=== PATIENT | female | born 1965 ===

== ENCOUNTER 2017-11-03 22:31 | Emergency (ER) | payer OTHER ==
--- NOTE | 2017-11-03 23:36 | ED PDOC ---
HPI: Abdomen Time Seen by Provider: 11/03/17 22:45 Chief Complaint (Nursing): Abdominal Pain Chief Complaint (Provider): abdominal pain History Per: Patient History/Exam Limitations: no limitations Onset/Duration Of Symptoms: Days (x8 months), Intermittent Episodes, Worse Since (x2 days) Current Symptoms Are (Timing): Still Present Associated Symptoms: Vomiting. denies: Fever, Chills, Diarrhea, Loss Of Appetite, Constipation Additional Complaint(s): Yojana Nicholas is a 52 year old female, with no significant past medical history, who presents to the emergency department for evaluation of abdominal pain ongoing for x8 months. Patient just moved here from [place], and states on [place] she did visit the ER about this. She doesn't remember what kind of test she had done but ultimately she was diagnosed with gastritis. She was on medications for this but states she ran out. The pain has been intermittent for 8 months but over the last x2 days it returned and is associated with intermittent non bilious, non bloody vomiting. Otherwise, she reports a normal appetite. She denies any fever, chills, diarrhea, constipation, black or bloody stools. No further medical complaints. PMD: Past Medical History Reviewed: Historical Data, Nursing Documentation, Vital Signs Vital Signs: Last Vital Signs Temp 98.0 F 11/04/17 02:19 Pulse 56 L 11/04/17 02:19 Resp 18 11/04/17 02:19 BP 138/74 11/04/17 02:19 Pulse Ox 100 11/04/17 06:26 - Medical History PMH: No Chronic Diseases - Surgical History Surgical History: Cholecystectomy - Family History Family History: States: No Known Family Hx - Social History Current smoker - smoking cessation education provided: No - Home Medications Home Medications: Ambulatory Orders Medication Instructions Recorded Famotidine [Pepcid] 20 mg PO BID #30 tab 12/16/16 Sucralfate [Carafate] 1 gm PO BID #20 tab 12/16/16 Famotidine [Pepcid] 20 mg PO BID PRN #10 tab 11/04/17 Nitrofurantoin Macrocrystals 100 mg PO BID #14 cap 11/04/17 [Macrobid] - Allergies Allergies/Adverse Reactions: Allergies Allergy/AdvReac Type Severity Reaction Status Date / Time No Known Allergies Allergy Verified 11/03/17 22:38 Review of Systems ROS Statement: Except As Marked, All Systems Reviewed And Found Negative Constitutional: Negative for: Fever, Chills Gastrointestinal: Positive for: Vomiting (non bilious, non bloody), Abdominal Pain. Negative for: Diarrhea, Constipation, Melena, Hematochezia Physical Exam - Reviewed Nursing Documentation Reviewed: Yes Vital Signs Reviewed: Yes - Physical Exam Appears: Positive for: Non-toxic, No Acute Distress Head Exam: Positive for: ATRAUMATIC, NORMOCEPHALIC Skin: Positive for: Normal Color, Warm, Dry Eye Exam: Positive for: Normal appearance, EOMI, PERRL Neck: Positive for: Painless ROM Respiratory: Negative for: Respiratory Distress Gastrointestinal/Abdominal: Positive for: Soft, Tenderness (mild tenderness to palpation to left upper and lower quadrants. ). Negative for: Mass, Distended, Guarding, Rebound, Other (Negative Sanchez's sign and McBurney's point. ) Extremity: Positive for: Normal ROM (upper and lower extremities). Negative for : Deformity, Swelling Neurologic/Psych: Positive for: Alert, Oriented - Laboratory Results Result Diagrams: 11/03/17 23:34 11/03/17 23:34 - ECG O2 Sat by Pulse Oximetry: 100 (RA) Pulse Ox Interpretation: Normal Medical Decision Making Medical Decision Making: Time: 22:45 Initial Impression: acute on chronic abdominal pain. Differential diagnosis includes but not limited to gastritis, colitis, diverticulitis and enteritis. Initial Plan: --CMP --Lipase --CBC w/ differential --Obstructive series [RAD] --Bentyl 20 mg PO --Pepcid 20 mg PO --Urinalysis --Reevaluation 12am Endorsed to Dr Riley. Pending ER workup, reassessment and final ER disposition ----- Scribe Attestation: Documented by Nabil Guzmán, acting as a scribe for Yasmin Castelan MD. Provider Scribe Attestation: All medical record entries made by the Scribe were at my direction and personally dictated by me. I have reviewed the chart and agree that the record accurately reflects my personal performance of the history, physical exam, medical decision making, and the department course for this patient. I have also personally directed, reviewed, and agree with the discharge instructions and disposition. Disposition - Clinical Impression Clinical Impression: Abdominal pain - Disposition Disposition: Transfer of Care Disposition Time: 00:00 Condition: STABLE Prescriptions: Famotidine [Pepcid] 20 mg PO BID PRN #10 tab PRN Reason: Heartburn Nitrofurantoin Macrocrystals [Macrobid] 100 mg PO BID #14 cap Print Language: CITIZEN OF [place] Patient Signed Over To: Jose Riley Y
[2017-11-03 23:48] LABS: BASO % 0.6 % (0.0-2.0); EOS # 0.2 K/uL (0.0-0.7); HEMOGLOBIN 13.3 g/dL (12.0-16.0); LYMPH # 2.1 K/uL (1.0-4.3); LYMPH % 38.7 % (20.0-40.0); MEAN CORPUSCULAR HEMOGLOBIN 28.5 pg (27.0-31.0); MEAN CORPUSCULAR HGB CONC 32.7 g/dL (33.0-37.0); MEAN PLATELET VOLUME 7.6 fl (7.2-11.7); MONO # 0.4 K/uL (0.0-0.8); MONO % 7.8 % (0.0-10.0); NEUT # 2.8 K/uL (1.8-7.0); NEUT % 49.9 % (50.0-75.0); NRBC % 0.1 % (0.0-0.0); RBC 4.66 Mil/uL (3.80-5.20); RED CELL DISTRIBUTION WIDTH 13.1 % (11.5-14.5); WHITE BLOOD COUNT 5.5 K/uL (4.8-10.8)
[2017-11-04 00:15] LABS: ALB/GLOB RATIO 1.2 (1.0-2.1); ALBUMIN 4.2 g/dL (3.5-5.0); ALT/SGPT 63 U/L (9-52); AST/SGOT 44 U/L (14-36); BLOOD UREA NITROGEN 13 mg/dl (7-17); CALCIUM 9.5 mg/dL (8.4-10.2); GFR AFRICAN-AMERICAN > 60; GFR NON-AFRICAN AMERICAN > 60; LIPASE 18 U/L (23-300)
[2017-11-04 00:18] LABS: SQUAMOUS EPITHIAL 1 /hpf (0-5); URINE BACTERIA RARE (<OCC); URINE BILIRUBIN NEGATIVE (NEGATIVE); URINE BLOOD MODERATE (NEGATIVE); URINE CLARITY SLIGHTY-CLOUDY (Clear); URINE COLOR YELLOW (YELLOW); URINE GLUCOSE (UA) NEG (Normal); URINE LEUKOCYTE ESTERASE LARGE Leu/uL (Negative); URINE PROTEIN NEGATIVE (NEGATIVE); URINE UROBILINOGEN 0.2-1.0 mg/dL (0.2-1.0)
--- NOTE | 2017-11-04 00:29 | ED PDOC ---
- Laboratory Results Result Diagrams: 11/03/17 23:34 11/03/17 23:34 - ECG O2 Sat by Pulse Oximetry: 100 (RA) Medical Decision Making Medical Decision Makin:00 -Patient endorsed to me by Dr. Castelan, pending reevaluation. 01:48 Obstructive Series FINDINGS: Lungs: Unremarkable. No consolidation. Pleural space: Unremarkable. No pneumothorax. Heart: Unremarkable. No cardiomegaly. Mediastinum: Unremarkable. Intraperitoneal space: No free air. Gastrointestinal tract: Unremarkable. No dilation. Surgical clips RIGHT upper quadrant Organs: Unremarkable as visualized. Bones/joints: Unremarkable. IMPRESSION: Normal chest, abdomen and pelvis x-rays. Surgical clips RIGHT upper quadrant 02:00 -Patient made aware of elevated LFTs and need for outpt follow up 02:03 -Upon provider reevaluation patient is feeling better, is medically stable, and requires no further treatment in the ED at this time. Patient will be discharged home with prescriptions for Macrobid. Counseling was provided and all questions were answered regarding diagnosis and advised to follow up with PMD. There is agreement to discharge plan. Return if symptoms persist or worsen. Disposition Counseled Patient/Family Regarding: Studies Performed, Diagnosis, Need For Followup - Clinical Impression Clinical Impression: Abdominal pain - POA Present On Arrival: None - Disposition Disposition: Routine/Home Disposition Time: 02:03 Condition: IMPROVED Additional Instructions: your liver function test is elevated, follow up with your doctor also you have a borderline uti, and you will get antibiotics return to the ED with any worsening or concerning symptoms Prescriptions: Famotidine [Pepcid] 20 mg PO BID PRN #10 tab PRN Reason: Heartburn Nitrofurantoin Macrocrystals [Macrobid] 100 mg PO BID #14 cap Instructions: Urinary Tract Infection, Adult (DC) Forms: [employer] (Divehi) Print Language: PERUVIAN
[2017-11-04 02:20] VITALS: BP 138/74; PULSE 56; RESP 18; TEMP 98
[2017-11-04 06:26] VITALS: O2SAT 100
--- NOTE | 2017-11-04 10:31 | RAD ---
PROCEDURE: Radiographs of the chest and abdomen (obstructive series) HISTORY: ABD PAIN COMPARISON: No prior. TECHNIQUE: AP radiograph of the chest, with upright and supine radiographs of the abdomen. FINDINGS: CHEST: Lungs: Clear. Cardiovascular: Normal size heart. No pulmonary vascular congestion. Pleura: No pleural fluid. No pneumothorax. Other findings: None. ABDOMEN AND PELVIS: Bowel: Unremarkable bowel gas pattern. No evidence of mechanical obstruction. Free air: None. Bones: Unremarkable. Other findings: Surgical clips right upper quadrant IMPRESSION: No obvious radiographic evidence of obstruction. If indicated, CT abdomen pelvis should be obtained. Please note that this report is in general agreement with the preliminary report provided by [facility].
== END 2017-11-04 02:32 | disposition home or self-care (01) ==
LOC: H.ER 22:31
DX: R10.9 Unspecified abdominal pain (principal); G89.29 Other chronic pain

== ENCOUNTER 2017-11-27 10:26 | Emergency (ER) | payer OTHER ==
[2017-11-27 10:31] VITALS: BMI 24.7
[2017-11-27 10:33] VITALS: BP 128/72; PULSE 84; RESP 20; TEMP 97.7; O2SAT 97
--- NOTE | 2017-11-27 11:07 | ED PDOC ---
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 Patient denies any associated chest pain. She denies recent travel or known sick contacts. PMD: Dr. Mckinley Past Medical History Reviewed: Historical Data, Nursing Documentation, Vital Signs Vital Signs: Last Vital Signs Temp 97.7 F 11/27/17 10:31 Pulse 84 11/27/17 10:31 Resp 20 11/27/17 10:31 BP 128/72 11/27/17 10:31 Pulse Ox 97 11/27/17 11:41 - Medical History PMH: Gastritis - Surgical History Surgical History: Cholecystectomy - Family History Family History: States: No Known Family Hx - Living Arrangements Living Arrangements: With Family - Social History Current smoker - smoking cessation education provided: No Alcohol: None Drugs: Denies - Home Medications Home Medications: Ambulatory Orders Medication Instructions Recorded Famotidine [Pepcid] 20 mg PO BID #30 tab 12/16/16 Sucralfate [Carafate] 1 gm PO BID #20 tab 12/16/16 Famotidine [Pepcid] 20 mg PO BID PRN #10 tab 11/04/17 Nitrofurantoin Macrocrystals 100 mg PO BID #14 cap 11/04/17 [Macrobid] Albuterol HFA [Ventolin HFA 90 1 puff IH ASDIR #1 unit 11/27/17 mcg/actuation (8 g)] Azithromycin [Zithromax] 250 mg PO DAILY #6 tab 11/27/17 Benzonatate 200 mg PO TID PRN #20 capsule 11/27/17 Fluticasone Nasal [Flonase] 1 spray NS DAILY #1 bottle 11/27/17 - Allergies Allergies/Adverse Reactions: Allergies Allergy/AdvReac Type Severity Reaction Status Date / Time No Known Allergies Allergy Verified 11/03/17 22:38 Review of Systems ROS Statement: Except As Marked, All Systems Reviewed And Found Negative Constitutional: Positive for: Fever (tactile) ENT: Positive for: Nose Congestion. Negative for: Throat Pain Cardiovascular: Negative for: Chest Pain Respiratory: Positive for: Cough (dry) Gastrointestinal: Negative for: Nausea, Vomiting Physical Exam - Reviewed Nursing Documentation Reviewed: Yes Vital Signs Reviewed: Yes - Physical Exam Appears: Positive for: Well Skin: Positive for: Normal Color. Negative for: Rash Eye Exam: Positive for: Normal appearance ENT: Positive for: TM Is/Are (normal bilaterally), Nasal Congestion (and sinus congestion). Negative for: Pharyngeal Erythema, Tonsillar Exudate, Tonsillar Swelling Cardiovascular/Chest: Positive for: Regular Rate, Rhythm Respiratory: Positive for: Decreased Breath Sounds. Negative for: Respiratory Distress Extremity: Positive for: Normal ROM Neurologic/Psych: Positive for: Alert, Oriented - ECG O2 Sat by Pulse Oximetry: 97 Pulse Ox Interpretation: Normal - Other Rad CXR X-Ray: Interpreted by Me, Viewed By Me X-Ray Interpretation: no acute infiltrate Medical Decision Making Medical Decision Makin-year-old female with URI symptoms Plan: CXR PO sudafed Duoneb x 1 Patient is aware of all diagnostic testing results. All questions answered. Patient feels better after meds given in ED. Prescriptions given for Zithromax, albuterol inhaler, Flonase and Tessalon Perles. Patient advised to follow-up with primary doctor in 2-3 days. Disposition - Clinical Impression Clinical Impression: Bronchitis, Sinusitis - Patient ED Disposition Is Patient to be Admitted: No Counseled Patient/Family Regarding: Studies Performed, Diagnosis, Need For Followup, Rx Given - Disposition Referrals: Alen Mckinley MD [Family Provider] - Disposition: Routine/Home Disposition Time: 12:41 Condition: STABLE Additional Instructions: Take prescription meds as directed. Follow-up with primary doctor in 2-3 days. Prescriptions: Albuterol HFA [Ventolin HFA 90 mcg/actuation (8 g)] 1 puff IH ASDIR #1 unit Azithromycin [Zithromax] 250 mg PO DAILY #6 tab Benzonatate 200 mg PO TID PRN #20 capsule PRN Reason: Cough Fluticasone Nasal [Flonase] 1 spray NS DAILY #1 bottle Instructions: Sinusitis in Adults, Acute Bronchitis, Adult (DC) Forms: [employer] (Indonesian) Print Language: KINYARWANDA
[2017-11-27] MEDS ORDERED: Albuterol-Ipratrop 3 mg / 0.5 (3 ml) UD INH STA (11:39)
[2017-11-27] MEDS ORDERED: Albuterol-Ipratrop 3 mg / 0.5 (3 ml) UD ONE (11:56)
[2017-11-27] MEDS ORDERED: Povidone Iodine Topical 10% Sol ONE (11:59)
--- NOTE | 2017-11-27 14:00 | RAD ---
Date of service: 11/27/2017 HISTORY: cough COMPARISON: Abdomen obstructive series with chest 11/03/2017. TECHNIQUE: Chest PA and lateral FINDINGS: LUNGS: Trace patchy density is difficult to completely exclude lateral left base but is seen only in the frontal view and may be artifactual. Clinically correlate further. PLEURA: No significant pleural effusion identified. No pneumothorax apparent. CARDIOVASCULAR: Normal. OSSEOUS STRUCTURES: No significant abnormalities. VISUALIZED UPPER ABDOMEN: Surgical clips are identified in the right upper quadrant abdomen. OTHER FINDINGS: None. IMPRESSION: Questionable interval patchy density left base which may reflect interval airspace disease or the artifact. Is seen in the only one view. Clinically correlate. Exam otherwise stable and unremarkable.
== END 2017-11-27 12:45 | disposition home or self-care (01) ==
LOC: H.ER 10:26
DX: J40 Bronchitis, not specified as acute or chronic (principal); J32.9 Chronic sinusitis, unspecified

== ENCOUNTER 2018-06-21 11:08 | Emergency (ER) | payer OTHER ==
[2018-06-21 11:08] VITALS: BMI 24.7
[2018-06-21 11:30] VITALS: BP 127/82; PULSE 79; RESP 18; TEMP 97.6; O2SAT 98
[2018-06-21] MEDS ORDERED: Naproxen 500 MG TAB PO STA (11:40)
--- NOTE | 2018-06-21 11:43 | ED PDOC ---
HPI: CCC, URI, Sore Throat Time Seen by Provider: 06/21/18 11:33 Chief Complaint (Nursing): ENT Problem Chief Complaint (Provider): ENT Problem History Per: Patient History/Exam Limitations: no limitations Onset/Duration Of Symptoms: Days (x3) Current Symptoms Are (Timing): Still Present Additional Complaint(s): 53 year old female presents to ED with complaints of cough, sore throat, and bilateral ear pain for 3 days. Patient was seen at her PCP then advised to go to ED for a CXR. 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 PCP: Dr. Alen Mckinley Past Medical History Reviewed: Historical Data, Nursing Documentation, Vital Signs Vital Signs: Last Vital Signs Temp 97.6 F 06/21/18 11:26 Pulse 79 06/21/18 11:26 Resp 18 06/21/18 11:26 BP 127/82 06/21/18 11:26 Pulse Ox 98 06/21/18 11:26 - Medical History PMH: Gastritis - Surgical History Surgical History: Cholecystectomy - Family History Family History: States: Unknown Family Hx - Home Medications Home Medications: Ambulatory Orders Medication Instructions Recorded Famotidine [Pepcid] 20 mg PO BID #30 tab 12/16/16 Sucralfate [Carafate] 1 gm PO BID #20 tab 12/16/16 Famotidine [Pepcid] 20 mg PO BID PRN #10 tab 11/04/17 Nitrofurantoin Macrocrystals 100 mg PO BID #14 cap 11/04/17 [Macrobid] Albuterol HFA [Ventolin HFA 90 1 puff IH ASDIR #1 unit 11/27/17 mcg/actuation (8 g)] Azithromycin [Zithromax] 250 mg PO DAILY #6 tab 11/27/17 Fluticasone Nasal [Flonase] 1 spray NS DAILY #1 bottle 11/27/17 RX: Benzonatate 200 mg PO TID PRN #20 capsule 11/27/17 Benzonatate [Tessalon Perles] 100 mg PO Q8 #15 sgl 06/21/18 - Allergies Allergies/Adverse Reactions: Allergies Allergy/AdvReac Type Severity Reaction Status Date / Time No Known Allergies Allergy Verified 11/03/17 22:38 Review of Systems ROS Statement: Except As Marked, All Systems Reviewed And Found Negative Constitutional: Negative for: Fever, Chills ENT: Positive for: Ear Pain (bilaterally), Throat Pain Respiratory: Positive for: Cough Physical Exam - Reviewed Nursing Documentation Reviewed: Yes Vital Signs Reviewed: Yes - Physical Exam Appears: Positive for: Non-toxic, No Acute Distress Head Exam: Positive for: ATRAUMATIC, NORMAL INSPECTION, NORMOCEPHALIC Skin: Positive for: Normal Color Eye Exam: Positive for: Normal appearance, EOMI, PERRL ENT: Positive for: Normal ENT Inspection, TM Is/Are (clear bilaterally. nonbulging and nonerythematous). Negative for: Pharyngeal Erythema, Tonsillar Swelling Neck: Positive for: Normal, Supple Cardiovascular/Chest: Positive for: Regular Rate, Rhythm, Chest Non Tender Respiratory: Positive for: Normal Breath Sounds. Negative for: Wheezing, Respiratory Distress Neurologic/Psych: Positive for: Alert, Oriented - ECG O2 Sat by Pulse Oximetry: 98 (RA) Pulse Ox Interpretation: Normal Medical Decision Making Medical Decision Making: Time: 1137 Initial Plan: work up for viral URI. Patient declines Toradol and dexamethasone when offered by provider. Will order Naprosyn PO for pain control in addition to imaging. Most likely, will discharge home. * CXR * Naproxen 500mg PO Time: 1232 --CXR FINDINGS: LINES AND TUBES: None. LUNG AND PLEURA: The lungs are well inflated and clear. No pleural effusion or pneumothorax. HEART AND MEDIASTINUM: The heart is not enlarged. No aortic atherosclerotic calcifications present. The hilar and mediastinal contours are within normal limits. SKELETAL STRUCTURES: The bony structures are within normal limits for the patient's age. VISUALIZED UPPER ABDOMEN: Normal. OTHER FINDINGS: None. IMPRESSION: No active pulmonary disease. Scribe Attestation: Documented by Elissa De Luna, acting as a scribe for Lynnette Bee MD. Provider Scribe Attestation: All medical record entries made by the Scribe were at my direction and personally dictated by me. I have reviewed the chart and agree that the record accurately reflects my personal performance of the history, physical exam, medical decision making, and the department course for this patient. I have also personally directed, reviewed, and agree with the discharge instructions and disposition. Disposition - Clinical Impression Clinical Impression: Upper respiratory infection - Disposition Referrals: Alen Mckinley MD [Primary Care Provider] - Disposition Time: 12:35 Condition: STABLE Additional Instructions: Take Tylenol or Motrin for pain. Use Tessalon Perles for sore throat. Follow up with primary medical doctor as needed. Prescriptions: Benzonatate [Tessalon Perles] 100 mg PO Q8 #15 sgl Instructions: Viral Upper Respiratory Infection, Adult (DC) Forms: [employer] (Arabic) Print Language: YI
[2018-06-21] MEDS ORDERED: Naproxen 500 MG TAB PO ONE (11:48)
--- NOTE | 2018-06-21 12:36 | RAD ---
Date of service: 06/21/2018 HISTORY: Cough COMPARISON: 11/27/2017. TECHNIQUE: Chest PA and lateral FINDINGS: LINES AND TUBES: None. LUNG AND PLEURA: The lungs are well inflated and clear. No pleural effusion or pneumothorax. HEART AND MEDIASTINUM: The heart is not enlarged. No aortic atherosclerotic calcifications present. The hilar and mediastinal contours are within normal limits. SKELETAL STRUCTURES: The bony structures are within normal limits for the patient's age. VISUALIZED UPPER ABDOMEN: Normal. OTHER FINDINGS: None. IMPRESSION: No active pulmonary disease.
== END 2018-06-21 13:31 | disposition home or self-care (01) ==
LOC: H.ER 11:08 → SUPCPDRO 11:08 → H.ER 13:31
DX: J06.9 Acute upper respiratory infection, unspecified (principal)